=== PATIENT | female | born 1965 | race Caucasian/White ===

== ENCOUNTER → 2018-04-29 15:02 | Outpatient (CLI) | payer MEDICARE, MEDICAID, SELFPAY ==
--- NOTE | 2018-04-29 | DI.MRI.S_ITS ---
PROCEDURE: MR CERVICAL SPINE WO CON INDICATIONS: NECK PAIN AND RIGHT ARM WEAKNESS TECHNIQUE: Noncontrast sagittal T1 spin echo and T2 fast spin echo, sagittal STIR, foraminal oblique sagittal T2 fast spin echo, and axial gradient echo or T2 fast spin echo through the cervical spine. COMPARISON: [facility], CERVICAL SPINE 2 OR 3 VIEWS, 03/31/2011, 18:35. FINDINGS: Image quality: Excellent. Alignment and Curvature: There is normal bony alignment. Bone Marrow: Marrow demonstrates normal overall signal. Spinal Cord: Visualized spinal cord has normal size and signal. No cerebellar tonsillar herniation. Paraspinous Soft Tissues: No paravertebral masses. Prevertebral soft tissues are normal in thickness. C2-C3: Normal appearance. C3-C4: Normal appearance. C4-C5: Normal appearance. C5-C6: The disc height is well-preserved. Loss of disc signal is seen at this level. A mild degree of generalized disc osteophyte complex is seen. No significant neural foraminal or central canal narrowing are seen. C6-C7: Normal appearance. C7-T1: Normal appearance. IMPRESSION: No significant abnormality is seen. Dictated by: Alfa Jade M.D. on 04/29/2018 at 14:56 Approved by: Alfa Jade M.D. on 04/29/2018 at 15:03
== END ==
PROVIDERS: PCP Internal Medicine; Visit Provider Specialist
DX: M54.2 Cervicalgia (principal); R53.1 Weakness
CPT/HCPCS: 72141

== ENCOUNTER 2018-07-21 23:09 | Emergency (ER) | payer MEDICARE, MEDICAID, SELFPAY ==
[2018-07-21 23:14] VITALS: BP 120/75; PULSE 81; RESP 20; TEMP 37; O2SAT 96
--- NOTE | 2018-07-21 23:18 | DI.RAD.S_ITS ---
PROCEDURE: XR ANKLE LT MIN 3V INDICATIONS: 53 year-old woman with fall and ankle pain. TECHNIQUE: 3 views of the ankle were acquired. COMPARISON: None. FINDINGS: Bones: There is a minimally displaced fracture involving the tip of the lateral malleolus. Ankle mortise is normally aligned. No suspicious bony lesions. Soft tissues: Small tibiotalar joint effusion. Achilles tendon appears normal. Soft tissue swelling over the lateral malleolus. IMPRESSION: Minimally displaced lateral malleolar fracture. Dictated by: Mana Lakhani M.D. on 07/22/2018 at 8:32 Approved by: Mana Lakhani M.D. on 07/22/2018 at 8:34
[2018-07-22 01:44] VITALS: BP 104/89; PULSE 77; RESP 16; O2SAT 99
[2018-07-22 01:45] VITALS: BP 104/89; PULSE 77; RESP 16; O2SAT 99
--- NOTE | 2018-07-22 06:07 | ED_ITS ---
HPI - Extremity Injury (Lower) General Chief Complaint: Extremity Injury, Lower Stated Complaint: left ankle injury/thinks broken tripped Time Seen by Provider: 07/22/18 00:00 Source: patient Mode of arrival: ambulatory Limitations: no limitations History of Present Illness HPI Narrative: 53-year-old female with history of diabetic neuropathy and obesity presents with a chief complaint of left ankle pain after an inversion injury while walking in her yd. She denies any knee or hip pain. She has significant pain with any weight-bearing or ambulation. She denies numbness, tingling or weakness. She denies any head, neck or back pain. She admits to notable swelling on her lateral ankle MD complaint: ankle injury Onset (ago): hour(s) Type of Injury: inversion Place: street/outdoors Severity: severe Relieving factors: nothing Exacerbating factors: movement Context: walking Associated symptoms: snap/pop sensation and swelling Other symptoms: none Related Data Home Medications Medication Instructions Recorded Confirmed Lancet: Device #0 05/02/17 05/13/18 glucagon (human recombinant) 1 mg IM PRN PRN #0 11/12/17 05/13/18 [GlucaGen Diagnostic Kit] ibuprofen PRN #0 11/12/17 05/13/18 lisinopril #0 11/12/17 05/13/18 rosuvastatin #0 11/12/17 05/07/18 Previous Rx's Medication Instructions Recorded valacyclovir 500 mg PO BID #60 05/19/12 oxycodone 15 mg OR PRN PRN #14 tab 09/24/16 fluticasone 1 spray INTRANASAL HS #16 gm 11/20/16 fluconazole [Diflucan] 150 mg PO QDAY #10 tab 02/08/17 Glucose: Home Monitor ea #1 04/26/17 Glucose: Test Strips str QID #180 05/01/17 docusate sodium [Colace] 100 mg PO BID PRN #90 cap 05/01/17 insulin aspart U-100 [Novolog 20 u SQ SEE INSTRUCTIONS #5 box 05/01/17 Flexpen U-100 Insulin] insulin glargine [Lantus Solostar 40 u SQ BID #5 box 05/01/17 U-100 Insulin] eletriptan [Relpax] 40 mg PO Q4HP PRN #12 tab 11/12/17 ketorolac 60 mg IM SEE INSTRUCTIONS PRN #4 11/12/17 syr pregabalin [Lyrica] 200 mg PO BID #60 cap 11/12/17 propranolol 120 mg PO QDAY #30 cap 12/26/17 omeprazole 20 mg tablet,delayed 20 mg PO QDAY #90 04/04/18 release eletriptan 40 mg tablet 40 mg PO .COMPLEX #12 tab 04/15/18 nadolol 40 mg tablet 40 mg PO DAILY #30 tab 04/15/18 pregabalin 200 mg capsule 200 mg PO BID #60 cap 04/15/18 dextroamphetamine-amphetamine 10 10 mg PO QPM #30 MDD 40mg 05/13/18 mg tablet dextroamphetamine-amphetamine ER 30 mg PO QDAY #30 cap MDD 40mg 05/13/18 30 mg 24hr capsule,extend release diazepam 10 mg tablet 10 mg PO BID #60 tab 05/13/18 lorazepam 2 mg tablet 2 mg PO HS #30 tab MDD 2mg 05/13/18 quetiapine 200 mg tablet 200 mg PO HS #30 tab MDD 200mg 05/13/18 fluconazole [Diflucan] 150 mg PO QDAY #3 tab 05/19/18 Allergies Allergy/AdvReac Type Severity Reaction Status Date / Time amoxicillin [AMOXICILLIN] Allergy Severe RASH Verified 05/13/18 15:12 Penicillins [PENICILLINS] Allergy Severe RASH Verified 05/13/18 15:12 Sulfa (Sulfonamide Allergy Severe RASH Verified 05/13/18 15:12 Antibiotics) [SULFA (SULFONAMIDE ANTIBIOTICS)] haloperidol [HALOPERIDOL] AdvReac Intermediate TARDIVE Verified 05/13/18 15:12 DYSKINESIA prochlorperazine AdvReac Intermediate TARDIVE Verified 05/13/18 15:12 [PROCHLORPERAZINE] DYSKINESIA Review of Systems Review of Systems All systems reviewed & are unremarkable except as noted in HPI and below Constitutional Denies chills, Denies fever(s), Denies lethargy and Denies weakness Eyes Denies change in vision, Denies eye discharge, Denies irritation and Denies loss of vision ENT Ears, Nose, Mouth, and Throat: Denies change in voice, Denies neck pain and Denies sore throat Cardiovascular Denies chest pain, Denies irregular heart rhythm, Denies lightheadedness, Denies palpitations, Denies dyspnea, Denies dyspnea on exertion and Denies orthopnea Respiratory Denies cough, Denies dyspnea, Denies dyspnea on exertion and Denies wheezing Gastrointestinal Gastrointestinal: Denies abdominal pain, Denies change in bowel habits, Denies diarrhea, Denies nausea and Denies vomiting Genitourinary Denies hematuria, Denies flank pain, Denies urinary incontinence and Denies urinary urgency Musculoskeletal Reports joint swelling, Reports limited range of motion and Denies neck pain Integumentary/Breasts Denies pruritus, Denies erythema, Denies rash and Denies wounds Neurologic Denies confusion, Denies loss of vision and Denies weakness Psychiatric Denies anxiety, Denies confusion, Denies depression, Denies homicidal ideation and Denies suicidal ideation Endocrine Denies palpitations Hematologic/Lymphatic Denies easy bruising Allergic/Immunologic Denies wheezing [facility] Social History Smoking Status: Former smoker Exam Narrative Exam Narrative: GEN: AOx3 and in mild distress EYES: Pupils are equal, round, and reactive to light and accommodation. Extraoccular muscles are intact bilaterally. There is no subconjunctival hemorrhage or exudate. CHEST: Lungs are clear to auscultation bilaterally and free of wheezes, rales, or rhonchi. Heart rate is regular rhythm, there are no murmurs, clicks, rubs, or gallops. There is no chest wall tenderness. ABD: Abdomen is soft and nontender. There is no guarding or rebound. Bowel sounds are normal in all 4 quadrants. There is no mass or organomegaly. EXT: Decreased range of motion secondary to pain of left ankle. Notable swelling over lateral malleolus. Closed, isolated, neurovascularly intact. SKIN: Warm, pink, and dry. No erythema or rash Initial Vital Signs Initial Vital Signs: Vital Signs Temperature 98.6 F 07/21/18 23:14 Pulse Rate 81 07/21/18 23:14 Respiratory Rate 20 07/21/18 23:14 Blood Pressure 120/75 07/21/18 23:14 Pulse Oximetry 96 07/21/18 23:14 Procedures Orthopedic Splinting/Casting Injury #1: Side: left Lower Extremity Injury Location: ankle Lower Extremity Immobilizer: boot orthosis Course Orders Ordered: ED Orders 07/21/18 23:18 XR ankle LT min 3V Stat Vital Signs - 8 hr 09/03/18 23:14 07/22/18 01:44 07/22/18 01:45 Temperature 98.6 F Pulse Rate 81 77 77 Respiratory Rate 20 16 16 Blood Pressure 120/75 104/89 Blood Pressure [Right Arm] 104/89 Pulse Oximetry 96 99 99 MDM - Extremity Injury (Lower) Differential Diagnosis Likely ankle sprain and strain, acute internal derangement of knee, fracture of femur, fracture of hip and ankle fracture Imaging Data Ankle Xray: Attestation: I personally reviewed and interpreted this imaging study as follows: My impression: Left distal fibular fracture, very minimal old displacement if any. Suspect the possibility of ankle mortise disruption on oblique Discharge Plan Departure Patient Disposition: Home Clinical Impression: Closed fracture of left distal fibula Discharge Date/Time: 07/22/18 01:45 Interventions: ED Discharge Assessment Last Done: 07/22/18 01:45 Instructions: Fibula Shaft Fracture Activity Restrictions/Additional Instructions: *You have been diagnosed with [ left distal fibula fracture with suspected ligamentous injury and mild mortise disruption ] *What to do: * continue to take medications as directed NO WEIGHT BEARING until cleared by ortho *Follow up with Orthopedics in 2-3 days, call for an appointment. Let them know you were seen in the Emergency Department and that we ask that you be seen in follow up *Return to ER if you should have any new, worsening or concerning symptoms , such as [ increasing pain, numbness, tingling, weakness or other bothersome symptoms] Prescriptions: No Action dextroamphetamine-amphetamine [Adderall XR] 30 mg capsule,extended release 24hr 30 mg PO QDAY MDD 40mg Qty: 30 RF: 0 dextroamphetamine-amphetamine [Adderall] 10 mg tablet 10 mg PO QPM MDD 40mg Qty: 30 RF: 0 diazepam 10 mg tablet 10 mg PO BID Qty: 60 RF: 1 quetiapine [Seroquel] 200 mg tablet 200 mg PO HS MDD 200mg Qty: 30 RF: 2 lorazepam 2 mg tablet 2 mg PO HS MDD 2mg Qty: 30 RF: 2 valacyclovir 500 MG tablet 500 mg PO BID Qty: 60 RF: 11 oxycodone 15 MG tablet 15 mg OR PRN PRNQty: 14 RF: 0 fluticasone 16 GM spray,suspension 1 spray Intranasal HS Qty: 16 RF: 0 fluconazole [Diflucan] 150 MG tablet 150 mg PO QDAY Qty: 10 RF: 1 Glucose: Home Monitor Qty: 1 RF: 0 docusate sodium [Colace] 100 MG capsule 100 mg PO BID PRNQty: 90 RF: 3 insulin aspart U-100 [Novolog Flexpen U-100 Insulin] 100 UNIT/1 ML insulin pen 20 u SQ SEE INSTRUCTIONS Qty: 5 RF: 5 insulin glargine [Lantus Solostar U-100 Insulin] 100 UNIT/1 ML insulin pen 40 u SQ BID Qty: 5 RF: 5 Glucose: Test Strips QID Qty: 180 RF: 5 Lancet: Device Qty: 0 RF: 0 ibuprofen 800 MG tablet PRNQty: 0 RF: 0 lisinopril 2.5 MG tablet Qty: 0 RF: 0 glucagon (human recombinant) [GlucaGen Diagnostic Kit] 1 MG/1 ML recon soln 1 mg IM PRN PRNQty: 0 RF: 0 rosuvastatin 20 MG tablet Qty: 0 RF: 0 eletriptan [Relpax] 40 MG tablet 40 mg PO Q4HP PRNQty: 12 RF: 11 ketorolac 60 MG/2 ML syringe 60 mg IM SEE INSTRUCTIONS PRNQty: 4 RF: 11 pregabalin [Lyrica] 200 MG capsule 200 mg PO BID Qty: 60 RF: 5 propranolol 120 MG capsule,extended release 24 hr 120 mg PO QDAY Qty: 30 RF: 5 omeprazole 20 mg tablet,delayed release (DR/EC) 20 mg PO QDAY Qty: 90 RF: 3 fluconazole [Diflucan] 150 mg tablet 150 mg PO QDAY Qty: 3 RF: 0 nadolol 40 mg tablet 40 mg PO DAILY Qty: 30 RF: 11 eletriptan [Relpax] 40 mg tablet 40 mg PO .COMPLEX Qty: 12 RF: 11 pregabalin [Lyrica] 200 mg capsule 200 mg PO BID Qty: 60 RF: 5 Referrals: Josr Stanton MD [Primary Care Provider] - Crow Oliva MD [Physician] -
== END 2018-07-22 01:45 | disposition home or self-care (01) ==
PROVIDERS: Emergency Provider Emergency Medicine; PCP Internal Medicine
DX: S82.832A Other fracture of upper and lower end of left fibula, initial encounter for closed fracture (principal); W18.40XA Slipping, tripping and stumbling without falling, unspecified, initial encounter; Y93.01 Activity, walking, marching and hiking; Y92.007 Garden or yard of unspecified non-institutional (private) residence as the place of occurrence of the external cause
CPT/HCPCS: 73610; 99283

== ENCOUNTER 2018-12-14 17:31 | Emergency (ER) | payer MEDICARE, MEDICAID, SELFPAY ==
--- NOTE | 2018-12-14 17:35 | DI.RAD.S_ITS ---
PROCEDURE: XR HAND LT MIN 3V INDICATIONS: slammed hand in door TECHNIQUE: 3 views of the hand(s) acquired. COMPARISON: , CR, XR WRIST LT 2V, 12/14/2018, 17:55. FINDINGS: Bones: There is a chip fracture at the base of the second proximal phalanx with mild displacement. Carpal bones are normally aligned. No suspicious bony lesions. Soft tissues: No suspicious soft tissue calcifications. IMPRESSION: A chip fracture at the base of the second proximal phalanx. Dictated by: Mana Lakhani M.D. on 12/14/2018 at 18:23 Approved by: Mana Lakhani M.D. on 12/14/2018 at 18:25
--- NOTE | 2018-12-14 17:51 | DI.RAD.S_ITS ---
PROCEDURE: XR WRIST LT 2V INDICATIONS: pain after jamming hand into car door TECHNIQUE: 2 views of the wrist were acquired. COMPARISON: [facility], CR, XR HAND LT MIN 3V, 12/14/2018, 17:39. FINDINGS: Bones: There is a chip fracture at the base of the second proximal phalanx with mild displacement. No suspicious bony lesions. Soft tissues: No suspicious soft tissue calcifications. IMPRESSION: Chip fracture at the base of the second proximal phalanx. Dictated by: Mana Lakhani M.D. on 12/14/2018 at 18:25 Approved by: Mana Lakhani M.D. on 12/14/2018 at 18:27
--- NOTE | 2018-12-14 18:12 | ED.UPPEXIN ---
HPI - Extremity Injury (Upper) <Abida Kay, OUTREACH COUNSELOR-BC - Last Filed: 12/14/18 19:36> General Chief Complaint: Extremity Injury, Upper Stated Complaint: Slammed hand into door of car Time Seen by Provider: 12/14/18 17:42 Source: patient Mode of arrival: ambulatory Limitations: no limitations History of Present Illness HPI narrative: Patient presents with chief complaint of left hand and wrist pain since . She is a former smoker with a history of diabetes. She states that she was walking her dog, who pulled her left hand forward and jammed her left 2nd digit in to her car door. She denies any numbness or tingling. She complains of bruising. She states she has not hurt this hand before. She is right-hand dominant. She denies any forearm shoulder or elbow pain. She saw her primary care provider after the injury, but did not discuss her pain as it was not hurting at that point time. Related Data Home Medications Medication Instructions Recorded Confirmed Lancet: Device #0 05/02/17 05/13/18 glucagon (human recombinant) 1 mg IM PRN PRN #0 11/12/17 05/13/18 [GlucaGen Diagnostic Kit] ibuprofen PRN #0 11/12/17 05/13/18 lisinopril #0 11/12/17 05/13/18 rosuvastatin #0 11/12/17 05/07/18 Previous Rx's Medication Instructions Recorded valacyclovir 500 mg PO BID #60 05/19/12 oxycodone 15 mg OR PRN PRN #14 tab 09/24/16 fluticasone 1 spray INTRANASAL HS #16 gm 11/20/16 fluconazole [Diflucan] 150 mg PO QDAY #10 tab 02/08/17 Glucose: Home Monitor ea #1 04/26/17 Glucose: Test Strips str QID #180 05/01/17 docusate sodium [Colace] 100 mg PO BID PRN #90 cap 05/01/17 insulin aspart U-100 [Novolog 20 u SQ SEE INSTRUCTIONS #5 box 05/01/17 Flexpen U-100 Insulin] insulin glargine [Lantus Solostar 40 u SQ BID #5 box 05/01/17 U-100 Insulin] eletriptan [Relpax] 40 mg PO Q4HP PRN #12 tab 11/12/17 ketorolac 60 mg IM SEE INSTRUCTIONS PRN #4 11/12/17 syr pregabalin [Lyrica] 200 mg PO BID #60 cap 11/12/17 propranolol 120 mg PO QDAY #30 cap 12/26/17 omeprazole 20 mg tablet,delayed 20 mg PO QDAY #90 04/04/18 release eletriptan 40 mg tablet 40 mg PO .COMPLEX #12 tab 04/15/18 nadolol 40 mg tablet 40 mg PO DAILY #30 tab 04/15/18 pregabalin 200 mg capsule 200 mg PO BID #60 cap 04/15/18 fluconazole [Diflucan] 150 mg PO QDAY #3 tab 05/19/18 dextroamphetamine-amphetamine 10 10 mg PO QPM #30 MDD 40mg 10/28/18 mg tablet dextroamphetamine-amphetamine ER 30 mg PO QDAY #30 cap MDD 40mg 10/28/18 30 mg 24hr capsule,extend release quetiapine 200 mg tablet 200 mg PO HS #30 tab MDD 200mg 10/28/18 diazepam 10 mg tablet 10 mg PO BID #90 tab 11/27/18 lorazepam 2 mg tablet 2 mg PO HS #45 tab MDD 2mg 11/27/18 Allergies Allergy/AdvReac Type Severity Reaction Status Date / Time amoxicillin [AMOXICILLIN] Allergy Severe RASH Verified 05/13/18 15:12 Penicillins [PENICILLINS] Allergy Severe RASH Verified 05/13/18 15:12 Sulfa (Sulfonamide Allergy Severe RASH Verified 05/13/18 15:12 Antibiotics) [SULFA (SULFONAMIDE ANTIBIOTICS)] haloperidol [HALOPERIDOL] AdvReac Intermediate TARDIVE Verified 05/13/18 15:12 DYSKINESIA prochlorperazine AdvReac Intermediate TARDIVE Verified 05/13/18 15:12 [PROCHLORPERAZINE] DYSKINESIA Review of Systems <Abida Kay, JUANITA-BC - Last Filed: 12/14/18 19:36> Review of Systems GENERAL: Denies chills, fatigue, malaise, fever, sweats. HEENT: Denies sinus pain, ear pain, sore throat, difficulty swallowing, dizziness. RESPIRATORY: Denies dyspnea, cough, wheezing, hemoptysis, sputum. CARDIOVASCULAR: Denies chest pain, palpitations, orthopnea, edema, GASTROINTESTINAL: Denies nausea, vomiting, abdominal pain, diarrhea, constipation, melena. : Denies dysuria, frequency, incontinence, hematuria, urinary retention. MUSCULOSKELETAL: See HPI SKIN: See HPI NEUROLOGIC: Denies weakness, headache, numbness, change in speech, confusion, seizures, incoordination. PSYCHIATRIC: No concerning psychosocial issues. 12 point review of systems is negative except for those stated above Exam <JUANITA Rodríguez-BC - Last Filed: 12/14/18 19:36> Narrative Exam Narrative: GENERAL: Obese patient sitting in no acute distress HEAD: Atraumatic. Normocephalic. No temporal or scalp tenderness. EYES: Pupils equal round and reactive. Extraocular motions intact. No scleral icterus. No injection or drainage. ENT: Nose without bleeding, purulent drainage or septal hematoma. Throat without erythema, tonsillar hypertrophy or exudate. Uvula midline. Airway patent. NECK: Trachea midline. No JVD or lymphadenopathy. Supple, nontender, no meningeal signs. CARDIOVASCULAR: Regular rate and rhythm RESPIRATORY: No cough. No increased respiratory effort. EXTREMITIES: Pain to palpation left 2nd digit. Capillary refill less than 2 sec left 2nd digit. Ecchymosis noted palmar aspect of left hand radiating from left 2nd digit to home. Pain to palpation of hand generalized. Full range of motion noted left wrist. Pain on palpation of left wrist. Patient complains on palpation of left 2nd digit. decreased flexion left second digit. BACK: Nontender without deformity or crepitance. No flank tenderness. NEURO: AOx3. Hyperverbal. SKIN: Ecchymosis noted left hand radiating from 2nd digit down to Center of palm. Skin intact. Initial Vital Signs Initial Vital Signs: Vital Signs Temperature 98.3 F 12/14/18 18:37 Pulse Rate 71 12/14/18 18:37 Respiratory Rate 20 12/14/18 18:37 Blood Pressure 118/78 12/14/18 18:37 Pulse Oximetry 100 12/14/18 18:37 <Epifanio Lopez MD - Last Filed: 12/15/18 00:45> Initial Vital Signs Initial Vital Signs: Vital Signs Temperature 98.3 F 12/14/18 18:37 Pulse Rate 71 12/14/18 18:37 Respiratory Rate 20 12/14/18 18:37 Blood Pressure 118/78 12/14/18 18:37 Pulse Oximetry 100 12/14/18 18:37 Course <MUKESH Rodríguez - Last Filed: 12/14/18 19:36> Orders Ordered: ED Orders 12/14/18 17:35 XR hand LT min 3V Stat 12/14/18 17:51 XR wrist LT 2V Stat Vital Signs - 8 hr 12/14/18 18:37 Temperature 98.3 F Pulse Rate 71 Respiratory Rate 20 Blood Pressure [Right Arm] 118/78 Pulse Oximetry 100 <Epifanio Lopez MD - Last Filed: 12/15/18 00:45> Orders Ordered: ED Orders 12/14/18 17:35 XR hand LT min 3V Stat 12/14/18 17:51 XR wrist LT 2V Stat Vital Signs - 8 hr 12/14/18 18:37 Temperature 98.3 F Pulse Rate 71 Respiratory Rate 20 Blood Pressure [Right Arm] 118/78 Pulse Oximetry 100 MDM - Extremity Injury (Upper) <MUKESH Rodríguez - Last Filed: 12/14/18 19:36> Imaging Data left wrist xray: Radiologist's impression: [address] [address] XRay Report Signed Patient: Anali Don MMR#: [id number] : 1965Acct:[id number] Age/Sex: 53 / FDate of Service: 12/14/18 Loc: ED Accession Number: [id number] Procedure: XR wrist LT 2V Ordering Provider: Abida Kay PROCEDURE: XR WRIST LT 2V INDICATIONS: pain after jamming hand into car door TECHNIQUE: 2 views of the wrist were acquired. COMPARISON: [facility], , XR HAND LT MIN 3V, 12/14/2018, 17:39. FINDINGS: Bones: There is a chip fracture at the base of the second proximal phalanx with mild displacement. No suspicious bony lesions. Soft tissues: No suspicious soft tissue calcifications. IMPRESSION: Chip fracture at the base of the second proximal phalanx. Dictated by: Mana Lakhani M.D. on 12/14/2018 at 18:25 Approved by: Mana Lakhani M.D. on 12/14/2018 at 18:27 hand xray : Radiologist's impression: [address] [address] XRay Report Signed Patient: Anali Don MMR#: [id number] : 1965Acct:[id number] Age/Sex: 53 / FDate of Service: 12/14/18 Loc: ED Accession Number: [id number] Procedure: XR hand LT min 3V Ordering Provider: Abida Kay PROCEDURE: XR HAND LT MIN 3V INDICATIONS: slammed hand in door TECHNIQUE: 3 views of the hand(s) acquired. COMPARISON: [facility], CR, XR WRIST LT 2V, 12/14/2018, 17:55. FINDINGS: Bones: There is a chip fracture at the base of the second proximal phalanx with mild displacement. Carpal bones are normally aligned. No suspicious bony lesions. Soft tissues: No suspicious soft tissue calcifications. IMPRESSION: A chip fracture at the base of the second proximal phalanx. Dictated by: Mana Lakhani M.D. on 12/14/2018 at 18:23 Approved by: Mana Lakhani M.D. on 12/14/2018 at 18:25 [facility] Narrative Medical decision making narrative: Patient presents with chief complaint of left hand and wrist pain after jamming her hand into a car door. On x-ray she is noted to have a chip fracture at the base of her 2nd digit. She was placed in a splint. She was neurovascularly intact. I discussed at length using [id number] pain medication as needed as well as last ice compression elevation. I encouraged her to follow up with primary care provider. I discussed monitoring for circulation in coming back to the emergency department for any acute concerns. She had no questions or concerns upon discharge. Discharge Plan Departure Patient Disposition: Home Clinical Impression: Finger fracture, left Discharge Date/Time: 12/14/18 19:14 Interventions: ED Discharge Assessment Last Done: 12/14/18 19:13 Instructions: DI for Finger Fracture, How To Perform RICE (Rest, Ice, Compress, Elevate) Activity Restrictions/Additional Instructions: You have a small chip fracture in the finger on your left hand. Please use rest ice compression elevation. Please take [id number] pain medications as needed and able. Please follow-up with primary care provider. Please come back to the emergency department for any acute concerns including chest pain, shortness of breath, severe pain. Please rest her hand. Prescriptions: No Action valacyclovir 500 MG tablet 500 mg PO BID Qty: 60 RF: 11 oxycodone 15 MG tablet 15 mg OR PRN PRNQty: 14 RF: 0 fluticasone 16 GM spray,suspension 1 spray Intranasal HS Qty: 16 RF: 0 fluconazole [Diflucan] 150 MG tablet 150 mg PO QDAY Qty: 10 RF: 1 Glucose: Home Monitor Qty: 1 RF: 0 docusate sodium [Colace] 100 MG capsule 100 mg PO BID PRNQty: 90 RF: 3 insulin aspart U-100 [Novolog Flexpen U-100 Insulin] 100 UNIT/1 ML insulin pen 20 u SQ SEE INSTRUCTIONS Qty: 5 RF: 5 insulin glargine [Lantus Solostar U-100 Insulin] 100 UNIT/1 ML insulin pen 40 u SQ BID Qty: 5 RF: 5 Glucose: Test Strips QID Qty: 180 RF: 5 Lancet: Device Qty: 0 RF: 0 ibuprofen 800 MG tablet PRNQty: 0 RF: 0 lisinopril 2.5 MG tablet Qty: 0 RF: 0 glucagon (human recombinant) [GlucaGen Diagnostic Kit] 1 MG/1 ML recon soln 1 mg IM PRN PRNQty: 0 RF: 0 rosuvastatin 20 MG tablet Qty: 0 RF: 0 eletriptan [Relpax] 40 MG tablet 40 mg PO Q4HP PRNQty: 12 RF: 11 ketorolac 60 MG/2 ML syringe 60 mg IM SEE INSTRUCTIONS PRNQty: 4 RF: 11 pregabalin [Lyrica] 200 MG capsule 200 mg PO BID Qty: 60 RF: 5 propranolol 120 MG capsule,extended release 24 hr 120 mg PO QDAY Qty: 30 RF: 5 omeprazole 20 mg tablet,delayed release (DR/EC) 20 mg PO QDAY Qty: 90 RF: 3 fluconazole [Diflucan] 150 mg tablet 150 mg PO QDAY Qty: 3 RF: 0 dextroamphetamine-amphetamine [Adderall] 10 mg tablet 10 mg PO QPM MDD 40mg Qty: 30 RF: 0 dextroamphetamine-amphetamine [Adderall XR] 30 mg capsule,extended release 24hr 30 mg PO QDAY MDD 40mg Qty: 30 RF: 0 quetiapine [Seroquel] 200 mg tablet 200 mg PO HS MDD 200mg Qty: 30 RF: 2 lorazepam 2 mg tablet 2 mg PO HS MDD 2mg Qty: 45 RF: 0 diazepam 10 mg tablet 10 mg PO BID Qty: 90 RF: 0 nadolol 40 mg tablet 40 mg PO DAILY Qty: 30 RF: 11 eletriptan [Relpax] 40 mg tablet 40 mg PO .COMPLEX Qty: 12 RF: 11 pregabalin [Lyrica] 200 mg capsule 200 mg PO BID Qty: 60 RF: 5 Referrals: Josr Stanton MD [Primary Care Provider] - <Epifanio Lopez MD - Last Filed: 12/15/18 00:45> Cosign ED Attending Sonyature Attestation: I was in the ER at the time of this patient's treatment. I was available for verbal assistant kitchen manager or direct patient evaluation if needed. I agree with the evaluation and treatment plan.
--- NOTE | 2018-12-14 18:12 | PC.NURSE ---
cleaned wound with hibiclens then washed off and dried off, steri stripped 1cm flap on thumb knuckle palced 2x2 guaze over then wrapped in conforming guaze with thumb splint. sending pt home with left over supplies.
[2018-12-14 18:37] VITALS: BP 118/78; PULSE 71; RESP 20; TEMP 36.8; O2SAT 100
--- NOTE | 2018-12-14 19:36 | ED_ITS ---
HPI - Extremity Injury (Upper) <Abida Kay, HEAVY EQUIPMENT MECHANIC-BC - Last Filed: 12/14/18 19:36> General Chief Complaint: Extremity Injury, Upper Stated Complaint: Slammed hand into door of car Time Seen by Provider: 12/14/18 17:42 Source: patient Mode of arrival: ambulatory Limitations: no limitations History of Present Illness HPI narrative: Patient presents with chief complaint of left hand and wrist pain since . She is a former smoker with a history of diabetes. She states that she was walking her dog, who pulled her left hand forward and jammed her left 2nd digit in to her car door. She denies any numbness or tingling. She complains of bruising. She states she has not hurt this hand before. She is right-hand dominant. She denies any forearm shoulder or elbow pain. She saw her primary care provider after the injury, but did not discuss her pain as it was not hurting at that point time. Related Data Home Medications Medication Instructions Recorded Confirmed Lancet: Device #0 05/02/17 05/13/18 glucagon (human recombinant) 1 mg IM PRN PRN #0 11/12/17 05/13/18 [GlucaGen Diagnostic Kit] ibuprofen PRN #0 11/12/17 05/13/18 lisinopril #0 11/12/17 05/13/18 rosuvastatin #0 11/12/17 05/07/18 Previous Rx's Medication Instructions Recorded valacyclovir 500 mg PO BID #60 05/19/12 oxycodone 15 mg OR PRN PRN #14 tab 09/24/16 fluticasone 1 spray INTRANASAL HS #16 gm 11/20/16 fluconazole [Diflucan] 150 mg PO QDAY #10 tab 02/08/17 Glucose: Home Monitor ea #1 04/26/17 Glucose: Test Strips str QID #180 05/01/17 docusate sodium [Colace] 100 mg PO BID PRN #90 cap 05/01/17 insulin aspart U-100 [Novolog 20 u SQ SEE INSTRUCTIONS #5 box 05/01/17 Flexpen U-100 Insulin] insulin glargine [Lantus Solostar 40 u SQ BID #5 box 05/01/17 U-100 Insulin] eletriptan [Relpax] 40 mg PO Q4HP PRN #12 tab 11/12/17 ketorolac 60 mg IM SEE INSTRUCTIONS PRN #4 11/12/17 syr pregabalin [Lyrica] 200 mg PO BID #60 cap 11/12/17 propranolol 120 mg PO QDAY #30 cap 12/26/17 omeprazole 20 mg tablet,delayed 20 mg PO QDAY #90 04/04/18 release eletriptan 40 mg tablet 40 mg PO .COMPLEX #12 tab 04/15/18 nadolol 40 mg tablet 40 mg PO DAILY #30 tab 04/15/18 pregabalin 200 mg capsule 200 mg PO BID #60 cap 04/15/18 fluconazole [Diflucan] 150 mg PO QDAY #3 tab 05/19/18 dextroamphetamine-amphetamine 10 10 mg PO QPM #30 MDD 40mg 10/28/18 mg tablet dextroamphetamine-amphetamine ER 30 mg PO QDAY #30 cap MDD 40mg 10/28/18 30 mg 24hr capsule,extend release quetiapine 200 mg tablet 200 mg PO HS #30 tab MDD 200mg 10/28/18 diazepam 10 mg tablet 10 mg PO BID #90 tab 11/27/18 lorazepam 2 mg tablet 2 mg PO HS #45 tab MDD 2mg 11/27/18 Allergies Allergy/AdvReac Type Severity Reaction Status Date / Time amoxicillin [AMOXICILLIN] Allergy Severe RASH Verified 05/13/18 15:12 Penicillins [PENICILLINS] Allergy Severe RASH Verified 05/13/18 15:12 Sulfa (Sulfonamide Allergy Severe RASH Verified 05/13/18 15:12 Antibiotics) [SULFA (SULFONAMIDE ANTIBIOTICS)] haloperidol [HALOPERIDOL] AdvReac Intermediate TARDIVE Verified 05/13/18 15:12 DYSKINESIA prochlorperazine AdvReac Intermediate TARDIVE Verified 05/13/18 15:12 [PROCHLORPERAZINE] DYSKINESIA Review of Systems <Abida Kay, JUANITA-BC - Last Filed: 12/14/18 19:36> Review of Systems GENERAL: Denies chills, fatigue, malaise, fever, sweats. HEENT: Denies sinus pain, ear pain, sore throat, difficulty swallowing, dizziness. RESPIRATORY: Denies dyspnea, cough, wheezing, hemoptysis, sputum. CARDIOVASCULAR: Denies chest pain, palpitations, orthopnea, edema, GASTROINTESTINAL: Denies nausea, vomiting, abdominal pain, diarrhea, constipation, melena. : Denies dysuria, frequency, incontinence, hematuria, urinary retention. MUSCULOSKELETAL: See HPI SKIN: See HPI NEUROLOGIC: Denies weakness, headache, numbness, change in speech, confusion, seizures, incoordination. PSYCHIATRIC: No concerning psychosocial issues. 12 point review of systems is negative except for those stated above Exam <JUANITA Rodríguez-BC - Last Filed: 12/14/18 19:36> Narrative Exam Narrative: GENERAL: Obese patient sitting in no acute distress HEAD: Atraumatic. Normocephalic. No temporal or scalp tenderness. EYES: Pupils equal round and reactive. Extraocular motions intact. No scleral icterus. No injection or drainage. ENT: Nose without bleeding, purulent drainage or septal hematoma. Throat without erythema, tonsillar hypertrophy or exudate. Uvula midline. Airway patent. NECK: Trachea midline. No JVD or lymphadenopathy. Supple, nontender, no meningeal signs. CARDIOVASCULAR: Regular rate and rhythm RESPIRATORY: No cough. No increased respiratory effort. EXTREMITIES: Pain to palpation left 2nd digit. Capillary refill less than 2 sec left 2nd digit. Ecchymosis noted palmar aspect of left hand radiating from left 2nd digit to home. Pain to palpation of hand generalized. Full range of motion noted left wrist. Pain on palpation of left wrist. Patient complains on palpation of left 2nd digit. decreased flexion left second digit. BACK: Nontender without deformity or crepitance. No flank tenderness. NEURO: AOx3. Hyperverbal. SKIN: Ecchymosis noted left hand radiating from 2nd digit down to Center of palm. Skin intact. Initial Vital Signs Initial Vital Signs: Vital Signs Temperature 98.3 F 12/14/18 18:37 Pulse Rate 71 12/14/18 18:37 Respiratory Rate 20 12/14/18 18:37 Blood Pressure 118/78 12/14/18 18:37 Pulse Oximetry 100 12/14/18 18:37 <Epifanio Lopez MD - Last Filed: 12/15/18 00:45> Initial Vital Signs Initial Vital Signs: Vital Signs Temperature 98.3 F 12/14/18 18:37 Pulse Rate 71 12/14/18 18:37 Respiratory Rate 20 12/14/18 18:37 Blood Pressure 118/78 12/14/18 18:37 Pulse Oximetry 100 12/14/18 18:37 Course <MUKESH Rodríguez - Last Filed: 12/14/18 19:36> Orders Ordered: ED Orders 12/14/18 17:35 XR hand LT min 3V Stat 12/14/18 17:51 XR wrist LT 2V Stat Vital Signs - 8 hr 12/14/18 18:37 Temperature 98.3 F Pulse Rate 71 Respiratory Rate 20 Blood Pressure [Right Arm] 118/78 Pulse Oximetry 100 <Epifanio Lopez MD - Last Filed: 12/15/18 00:45> Orders Ordered: ED Orders 12/14/18 17:35 XR hand LT min 3V Stat 12/14/18 17:51 XR wrist LT 2V Stat Vital Signs - 8 hr 12/14/18 18:37 Temperature 98.3 F Pulse Rate 71 Respiratory Rate 20 Blood Pressure [Right Arm] 118/78 Pulse Oximetry 100 MDM - Extremity Injury (Upper) <MUKESH Rodríguez - Last Filed: 12/14/18 19:36> Imaging Data left wrist xray: Radiologist's impression: [address] [address] XRay Report Signed Patient: Anali Don MMR#: [id number] : 1965Acct:[id number] Age/Sex: 53 / FDate of Service: 12/14/18 Loc: ED Accession Number: [id number] Procedure: XR wrist LT 2V Ordering Provider: Abida Kay PROCEDURE: XR WRIST LT 2V INDICATIONS: pain after jamming hand into car door TECHNIQUE: 2 views of the wrist were acquired. COMPARISON: [facility], , XR HAND LT MIN 3V, 12/14/2018, 17:39. FINDINGS: Bones: There is a chip fracture at the base of the second proximal phalanx with mild displacement. No suspicious bony lesions. Soft tissues: No suspicious soft tissue calcifications. IMPRESSION: Chip fracture at the base of the second proximal phalanx. Dictated by: Mana Lakhani M.D. on 12/14/2018 at 18:25 Approved by: Mana Lakhani M.D. on 12/14/2018 at 18:27 hand xray : Radiologist's impression: [address] [address] XRay Report Signed Patient: Anali Don MMR#: [id number] : 1965Acct:[id number] Age/Sex: 53 / FDate of Service: 12/14/18 Loc: ED Accession Number: [id number] Procedure: XR hand LT min 3V Ordering Provider: Abida Kay PROCEDURE: XR HAND LT MIN 3V INDICATIONS: slammed hand in door TECHNIQUE: 3 views of the hand(s) acquired. COMPARISON: [facility], CR, XR WRIST LT 2V, 12/14/2018, 17:55. FINDINGS: Bones: There is a chip fracture at the base of the second proximal phalanx with mild displacement. Carpal bones are normally aligned. No suspicious bony lesions. Soft tissues: No suspicious soft tissue calcifications. IMPRESSION: A chip fracture at the base of the second proximal phalanx. Dictated by: Mana Lakhani M.D. on 12/14/2018 at 18:23 Approved by: Mana Lakhani M.D. on 12/14/2018 at 18:[address] [facility] Narrative Medical decision making narrative: Patient presents with chief complaint of left hand and wrist pain after jamming her hand into a car door. On x-ray she is noted to have a chip fracture at the base of her 2nd digit. She was placed in a splint. She was neurovascularly intact. I discussed at length using over- the-counter pain medication as needed as well as last ice compression elevation. I encouraged her to follow up with primary care provider. I discussed monitoring for circulation in coming back to the emergency department for any acute concerns. She had no questions or concerns upon discharge. Discharge Plan Departure Patient Disposition: Home Clinical Impression: Finger fracture, left Discharge Date/Time: 12/14/18 19:14 Interventions: ED Discharge Assessment Last Done: 12/14/18 19:13 Instructions: DI for Finger Fracture, How To Perform RICE (Rest, Ice, Compress , Elevate) Activity Restrictions/Additional Instructions: You have a small chip fracture in the finger on your left hand. Please use rest ice compression elevation. Please take [id number] pain medications as needed and able. Please follow-up with primary care provider. Please come back to the emergency department for any acute concerns including chest pain, shortness of breath, severe pain. Please rest her hand. Prescriptions: No Action valacyclovir 500 MG tablet 500 mg PO BID Qty: 60 RF: 11 oxycodone 15 MG tablet 15 mg OR PRN PRNQty: 14 RF: 0 fluticasone 16 GM spray,suspension 1 spray Intranasal HS Qty: 16 RF: 0 fluconazole [Diflucan] 150 MG tablet 150 mg PO QDAY Qty: 10 RF: 1 Glucose: Home Monitor Qty: 1 RF: 0 docusate sodium [Colace] 100 MG capsule 100 mg PO BID PRNQty: 90 RF: 3 insulin aspart U-100 [Novolog Flexpen U-100 Insulin] 100 UNIT/1 ML insulin pen 20 u SQ SEE INSTRUCTIONS Qty: 5 RF: 5 insulin glargine [Lantus Solostar U-100 Insulin] 100 UNIT/1 ML insulin pen 40 u SQ BID Qty: 5 RF: 5 Glucose: Test Strips QID Qty: 180 RF: 5 Lancet: Device Qty: 0 RF: 0 ibuprofen 800 MG tablet PRNQty: 0 RF: 0 lisinopril 2.5 MG tablet Qty: 0 RF: 0 glucagon (human recombinant) [GlucaGen Diagnostic Kit] 1 MG/1 ML recon soln 1 mg IM PRN PRNQty: 0 RF: 0 rosuvastatin 20 MG tablet Qty: 0 RF: 0 eletriptan [Relpax] 40 MG tablet 40 mg PO Q4HP PRNQty: 12 RF: 11 ketorolac 60 MG/2 ML syringe 60 mg IM SEE INSTRUCTIONS PRNQty: 4 RF: 11 pregabalin [Lyrica] 200 MG capsule 200 mg PO BID Qty: 60 RF: 5 propranolol 120 MG capsule,extended release 24 hr 120 mg PO QDAY Qty: 30 RF: 5 omeprazole 20 mg tablet,delayed release (DR/EC) 20 mg PO QDAY Qty: 90 RF: 3 fluconazole [Diflucan] 150 mg tablet 150 mg PO QDAY Qty: 3 RF: 0 dextroamphetamine-amphetamine [Adderall] 10 mg tablet 10 mg PO QPM MDD 40mg Qty: 30 RF: 0 dextroamphetamine-amphetamine [Adderall XR] 30 mg capsule,extended release 24hr 30 mg PO QDAY MDD 40mg Qty: 30 RF: 0 quetiapine [Seroquel] 200 mg tablet 200 mg PO HS MDD 200mg Qty: 30 RF: 2 lorazepam 2 mg tablet 2 mg PO HS MDD 2mg Qty: 45 RF: 0 diazepam 10 mg tablet 10 mg PO BID Qty: 90 RF: 0 nadolol 40 mg tablet 40 mg PO DAILY Qty: 30 RF: 11 eletriptan [Relpax] 40 mg tablet 40 mg PO .COMPLEX Qty: 12 RF: 11 pregabalin [Lyrica] 200 mg capsule 200 mg PO BID Qty: 60 RF: 5 Referrals: Josr Stanton MD [Primary Care Provider] - <Epifanio Lopez MD - Last Filed: 12/15/18 00:45> Cosign ED Attending Sonyature Attestation: I was in the ER at the time of this patient's treatment. I was available for verbal medical records assistant or direct patient evaluation if needed. I agree with the evaluation and treatment plan.
== END 2018-12-14 19:14 | disposition home or self-care (01) ==
PROVIDERS: Emergency Provider Nurse Practitioner Family; PCP Internal Medicine
DX: S62.609A Fracture of unspecified phalanx of unspecified finger, initial encounter for closed fracture (principal); W23.0XXA Caught, crushed, jammed, or pinched between moving objects, initial encounter
CPT/HCPCS: 29130; 73100; 73130; 99283

== ENCOUNTER 2019-05-14 17:46 | Emergency (ER) | payer MEDICARE, MEDICAID, SELFPAY ==
[2019-05-14 17:50] VITALS: BP 98/75; PULSE 105; RESP 22; TEMP 37.1; O2SAT 98; BMI 91.7
[2019-05-14 18:25] LABS: Add Manual Diff / Slide Review NO; Basophils Absolute Auto 0 /uL (0-100); Basophils Percent Auto 0.5 % (0-2); Eosinophils Absolute Auto 100 /uL (0-450); Eosinophils Percent Auto 1.6 % (2-4); Hematocrit 41.1 % (36-46); Hemoglobin 13.7 g/dL (12.0-16.0); Lymphocytes Absolute Auto 3100 /uL (1100-4500); Lymphocytes Percent Auto 45.1 % (25-40); Mean Corpuscular HGB Conc 33.3 % (30-36); Mean Corpuscular Hemoglobin 28.9 PG (26-34); Mean Corpuscular Volume 86.8 fL (80-100); Monocytes Absolute Auto 500 /uL (0-900); Monocytes Percent Auto 7.6 % (3-14); Neutrophils Absolute Auto 3100 /uL (1500-7000); Neutrophils Percent Auto 45.2 % (50-75); Platelet Count 173 X10^3/uL (150-400); Red Blood Cell Count 4.73 X10^6/uL (4.0-5.2); Red Cell Distribution Width 13.7 % (11.6-14.8); White Blood Cell Count 6.9 X10^3/uL (4.5-11.0)
[2019-05-14 18:28] VITALS: BP 105/79; PULSE 104; RESP 20; O2SAT 97
[2019-05-14 18:41] LABS: Alanine Aminotransferase 25 IU/L (9-52); Albumin 4.1 g/dL (3.5-5.0); Albumin Globulin Ratio 1.3 (1.0-2.8); Alkaline Phosphatase 135 U/L (38-126); Aspartate Aminotransferase 25 IU/L (14-36); BUN Creatinine Ratio 22.5 (6-22); Bilirubin Total 0.5 mg/dL (0.2-1.3); Blood Urea Nitrogen 18 mg/dL (7-17); Carbon Dioxide 24 mmol/L (22-32); Chloride 103 mmol/L (98-107); Creatine Kinase 91 U/L (30-135); Estimated Glomerular Filt Rate > 60.0 mL/min (>60); Globulin 3.1 g/dL (1.7-4.1); Glucose 359 mg/dL (70-100); HEMOLYSIS < 15 (0-50); Lactate (Lactic Acid) 3.1 mmol/L (0.7-2.1); Potassium 3.7 mmol/L (3.4-5.1); Sodium 139 mmol/L (137-145); Total Protein 7.2 g/dL (6.3-8.2)
[2019-05-14 18:42] LABS: HCO3 VBG 22 mmol/L (23-28); PCO2 VBG 49.8 mmHg (45-50); PO2 VBG 34 mmHg (35-45); Total CO2 VBG 24 mmol/L (24-29); pH VBG 7.26 (7.33-7.43)
[2019-05-14 18:43] LABS: Oxygen Saturation VBG 56 % (70-75)
[2019-05-14 18:45] LABS: Ketones (Beta-Hydroxybutyrate) 0.14 mmol/L (<0.27)
[2019-05-14] MEDS: SODIUM CHLORIDE 0.9% 1,000 ML 1000 ML IV (18:52)
[2019-05-14 18:56] LABS: Procalcitonin < 0.05 ng/mL (<0.5); Troponin I < 0.012 ng/mL (0.01-0.034)
--- NOTE | 2019-05-14 19:55 | ED_ITS ---
HPI - Arrhythmia/Palpitations General Chief Complaint: Arrhythmia/Palpitations Stated Complaint: CHEST PAIN, SHORT OF BREATH Time Seen by Provider: 05/14/19 18:03 Source: patient Mode of arrival: ambulatory Limitations: no limitations History of Present Illness HPI narrative: Patient comes emergency department complaining of palpitations and shortness of breath whenever she bends over or stands up. The symptoms seem to come on and resolved together. Patient states that she does not have the symptoms when she is just sitting still or lying in bed. She states that she feels like she has been getting enough to drink, but her sugars also run quite high at baseline, from 2-400 usually. Patient states that she has not been ill with anything in particular. No vomiting, though she has some chronic nausea. No diarrhea. No dysuria. No fevers or chills. Patient states that she has gained some weight over the last several months, and wonders if this is part of the problem. She denies any chest pain or shortness of breath. Patient states she has not taken her pulse during the times when she feels as though her heart is racing. No change in her diet recently. She does note that her sugars seems to be higher than usual today. The highest sugar she had was 600 this afternoon. Patient states she took her insulin at a little higher dose than usual, and her sugars were starting to come down before she came here. Related Data Home Medications Medication Instructions Recorded Confirmed Lancet: Device #0 05/02/17 04/07/19 glucagon (human recombinant) 1 mg IM PRN PRN #0 11/12/17 04/07/19 [GlucaGen Diagnostic Kit] ibuprofen 800 mg PO BID PRN #0 11/12/17 05/14/19 lisinopril #0 11/12/17 04/07/19 rosuvastatin 20 mg PO DAILY #0 11/12/17 05/14/19 insulin degludec (U-200) 200 32 unit SUBCUT BID #27 ml 01/13/19 04/07/19 unit/mL (3 mL) subcutaneous pen fluconazole [Diflucan] 150 mg PO .ONCE PRN 05/14/19 05/14/19 insulin degludec [Tresiba 05/14/19 FlexTouch U-200] naloxone [Narcan] 1 spray INTRANASAL PRN PRN 05/14/19 05/14/19 omeprazole 20 mg PO DAILY 05/14/19 05/14/19 oxycodone 15 mg OR Q8H PRN 05/14/19 05/14/19 pregabalin [Lyrica] 05/14/19 tizanidine 4 mg PO Q8H PRN 05/14/19 05/14/19 valacyclovir 05/14/19 Previous Rx's Medication Instructions Recorded valacyclovir 500 mg PO BID #60 05/19/12 fluticasone propionate 1 spray INTRANASAL HS #16 gm 11/20/16 Glucose: Home Monitor ea #1 04/26/17 Glucose: Test Strips str QID #180 05/01/17 docusate sodium [Colace] 100 mg PO BID PRN #90 cap 05/01/17 insulin aspart U-100 [Novolog 20 u SQ SEE INSTRUCTIONS #5 box 05/01/17 Flexpen U-100 Insulin] insulin glargine [Lantus Solostar 40 u SQ BID #5 box 05/01/17 U-100 Insulin] eletriptan [Relpax] 40 mg PO Q4HP PRN #12 tab 11/12/17 ketorolac 60 mg IM SEE INSTRUCTIONS PRN #4 11/12/17 syr pregabalin [Lyrica] 200 mg PO BID #60 cap 11/12/17 eletriptan 40 mg tablet 40 mg PO .COMPLEX #12 tab 04/15/18 nadolol 40 mg tablet 40 mg PO DAILY #30 tab 04/15/18 pregabalin 200 mg capsule 200 mg PO BID #60 cap 04/15/18 diazepam 10 mg tablet 10 mg PO BID #60 tab MDD 20 mg 01/13/19 lorazepam 2 mg tablet 3 mg PO HS #45 tab MDD 2mg 01/13/19 quetiapine 200 mg tablet 200 mg PO HS #30 tab MDD 200mg 01/13/19 dextroamphetamine-amphetamine 10 10 mg PO .PM #30 tab MDD 40 mg 04/07/19 mg tablet dextroamphetamine-amphetamine ER 30 mg PO DAILY 30 Days #30 cap MDD 04/07/19 30 mg 24hr capsule,extend release 40 mg Allergies Allergy/AdvReac Type Severity Reaction Status Date / Time amoxicillin [AMOXICILLIN] Allergy Severe RASH Verified 05/13/18 15:12 Penicillins [PENICILLINS] Allergy Severe RASH Verified 05/13/18 15:12 Sulfa (Sulfonamide Allergy Severe RASH Verified 05/13/18 15:12 Antibiotics) [SULFA (SULFONAMIDE ANTIBIOTICS)] haloperidol [HALOPERIDOL] AdvReac Intermediate TARDIVE Verified 05/13/18 15:12 DYSKINESIA prochlorperazine AdvReac Intermediate TARDIVE Verified 05/13/18 15:12 [PROCHLORPERAZINE] DYSKINESIA Review of Systems Constitutional Denies chills, Denies fever(s), Denies lethargy and Denies weakness Eyes Denies change in vision, Denies eye discharge, Denies irritation and Denies loss of vision ENT Ears, Nose, Mouth, and Throat: Denies change in voice, Denies neck pain and Denies sore throat Cardiovascular Denies chest pain, Denies irregular heart rhythm, Denies lightheadedness, Reports palpitations, Reports dyspnea, Denies dyspnea on exertion and Denies orthopnea Respiratory Denies cough, Reports dyspnea, Denies dyspnea on exertion and Denies wheezing Gastrointestinal Gastrointestinal: Denies abdominal pain, Denies change in bowel habits, Denies diarrhea, Denies nausea and Denies vomiting Genitourinary Denies hematuria, Denies flank pain, Denies urinary incontinence and Denies urinary urgency Musculoskeletal Denies neck pain Integumentary/Breasts Denies pruritus, Denies erythema, Denies rash and Denies wounds Neurologic Denies confusion, Denies loss of vision and Denies weakness Psychiatric Denies anxiety, Denies confusion, Denies depression, Denies homicidal ideation and Denies suicidal ideation Endocrine Reports palpitations Hematologic/Lymphatic Denies easy bruising Allergic/Immunologic Denies wheezing [facility] Medical History (Updated 05/14/19 @ 21:58 by Tori Pulido MD) Fractured coccyx (Acute) Chronic pain (Acute) Opiate dependence (Acute) Obesity (Chronic) Diabetes (Acute) Diabetic neuropathy (Acute) Bipolar 2 disorder (Chronic) Attention deficit hyperactivity disorder (ADHD), combined type (Chronic) Left leg pain (Acute) Fracture of right proximal fibula (Acute) Thoracic myofascial strain (Acute) Toe pain (Acute) Post traumatic stress disorder (Chronic) Bilateral low back pain with sciatica (12/08/15) Chronic pain syndrome (Chronic 12/08/15) Diabetic ketoacidosis with coma associated with type 2 diabetes mellitus (12/08/15) History of avascular necrosis of capital femoral epiphysis (12/08/15) Hyperalgesia (12/08/15) Encounter for long-term methadone use for opiate dependence (12/08/15) Anxiety and depression (Ruled-out 01/17/16) Obesity with body mass index (BMI) of 30.0 to 39.9 (01/17/16) Former smoker (03/20/16) Other closed fracture of proximal end of right fibula with routine healing (06/19/16) Social History Smoking Status: Former smoker Social History Smoking Status: Former smoker Exam Initial Vital Signs Initial Vital Signs: Vital Signs Temperature 98.7 F 05/14/19 17:50 Pulse Rate 105 H 05/14/19 17:50 Respiratory Rate 22 05/14/19 17:50 Blood Pressure 98/75 05/14/19 17:50 Pulse Oximetry 98 05/14/19 17:50 Const General: cooperative and well developed Nutritional Appearance: well nourished Orientation: alert, awake, oriented x3 and not confused Other: Patient is very well-appearing. [facility] Head: normocephalic and atraumatic Ears: external ears normal Nose: external nose normal and No nasal discharge Face and sinus: face symmetric and No dry mucous membranes Mouth: oral mucosae normal and moist mucous membranes Teeth and gingiva: dentition normal Eyes General: appearance normal, both eyes and all related structures Eyelids: eyelids normal Conjunctivae: conjunctivae normal Sclera: sclerae normal Pupils: PERRL EOM: EOM intact bilaterally Neck Neck: normal visual inspection, trachea midline, No lymphadenopathy, No midline deformity and No JVD Lymphatic: No lymphedema Chest Chest: normal inspection of the chest Resp Effort & Inspection: normal respiratory effort, able to speak in complete sentences, no respiratory distress and no use of accessory muscles Auscultation: clear to auscultation bilaterally, no rales, no rhonchi and no wheezes Other: Patient talks very quickly without difficulty, and speaks in several sentences at a time without a break. She does not appear to have any difficulty breathing in the midst of this. Cardio Rate: regular rate Rhythm: regular rhythm Heart Sounds: no click, no gallops, no murmurs and no rubs Pulses: normal peripheral pulses Other: Patient's cardiac rhythm is in the upper 90s to low 100s and regular on the monitor while I am in the room. Heart rate does increase to around 110 when patient sits up for the respiratory exam. GI Inspection: non-distended Palpation: soft, no hepatosplenomegaly, No guarding, No pulsatile mass and No tender Auscultation: normal bowel sounds Back/Spine/Pelvis Back: No CVA tenderness Cervical Spine: cervical ROM normal and No pain with cervical ROM Thoracic/Lumbar Spine: thoracic and lumbar spine normal to inspection Skin General: no rashes or lesions noted, No jaundice and No petechiae Neuro General: alert, oriented x3, gait normal and no focal motor deficits Speech: speech normal Extrem General: full ROM, no clubbing, cyanosis or edema, no pedal edema and no calf tenderness Psych Appearance: well kempt Mental Status: mental status grossly normal Attitude: cooperative Thought Content: normal and suicidality Judgment: judgment good Course Course Narrative: Patient was evaluated with laboratory studies, and found to have a blood sugar 359. She was given a L of 0.9 normal saline while in the emergency department. Patient's heart rate remained in the 90s and actually did come down to the low 90s after patient received IV fluids. Her blood pressure remained normal. I have discussed with the patient that she may need to wear a Holter monitor to sort out her palpitations, and that she may arrange this with her primary care physician. I do suspect that the patient is chronically somewhat dehydrated but perhaps with a recent exacerbation, due to her poorly controlled blood sugars and diabetes. We have discussed this. We have also discussed that while the patient may feel as though she is getting ?enough water? she may need to fill a jug or large bottle every morning, and make sure that she drinks at least 64 oz and maybe more if needed. Patient was found to b e feeling much better upon re-evaluation after fluids, and I felt she was stable for discharge home. Lactic acid level had been checked as part of a lab panel and found to be elevated, but did come down to nearly normal with IV fluids. I did not suspect this patient to be septic, as she had no infectious symptoms, and appeared quite well. We have discussed home management symptoms, the need for follow-up, and the usual indications for return. Orders Ordered: Discontinued Medications Sodium Chloride (Normal Saline 0.9%) 1,000 mls @ 1,000 mls/hr IV BOLUS ONE Stop: 05/14/19 19:51 Last Infusion: 05/14/19 19:53 Dose: 1,000 mls/hr Admin: 05/14/19 18:52 Dose: 1,000 mls/hr Vital Signs - 8 hr 05/14/19 17:50 05/14/19 18:28 Temperature 98.7 F Pulse Rate 105 H 104 H Respiratory Rate 22 20 Blood Pressure 98/75 Blood Pressure [Right Arm] 105/79 Pulse Oximetry 98 97 MDM - Arrhythmia/Palpitations Medical Records Attestation: I reviewed the patient's medical records. Lab Data Attestation: I reviewed the patient's lab results. Result diagrams: 05/14/19 18:15 05/14/19 18:15 Lab Results 05/14/19 05/14/19 05/14/19 Range/Units 18:08 18:15 18:15 WBC 6.9 (4.5-11.0) X10^3/uL RBC 4.73 (4.0-5.2) X10^6/uL Hgb 13.7 (12.0-16.0) g/dL Hct 41.1 (36-46) % MCV 86.8 (80-100) fL MCH 28.9 (26-34) PG MCHC 33.3 (30-36) % RDW 13.7 (11.6-14.8) % Plt Count 173 (150-400) X10^3/uL Neut % (Auto) 45.2 L (50-75) % Lymph % (Auto) 45.1 H (25-40) % Meagher % (Auto) 7.6 (3-14) % Eos % (Auto) 1.6 L (2-4) % Baso % (Auto) 0.5 (0-2) % Neut # (Auto) 3100 (7800-8389) /uL Lymph # (Auto) 3100 (8343-3336) /uL Meagher # (Auto) 500 (0-900) /uL Eos # (Auto) 100 (0-450) /uL Baso # (Auto) 0 (0-100) /uL VBG pH 7.26 L (7.33-7.43) VBG pCO2 49.8 (45-50) mmHg VBG pO2 34 L (35-45) mmHg VBG HCO3 22 L (23-28) mmol/L VBG Total CO2 24 (24-29) mmol/L VBG O2 Saturation 56 L (70-75) % VBG Base Excess -5.0 L (0-4) mmol/L Sodium 139 (137-145) mmol/L Potassium 3.7 (3.4-5.1) mmol/L Chloride 103 (98-107) mmol/L Carbon Dioxide 24 (22-32) mmol/L BUN 18 H (7-17) mg/dL Creatinine 0.80 (0.52-1.04) mg/dL Estimated GFR > 60.0 (>60) mL/min BUN/Creatinine Ratio 22.5 H (6-22) Glucose 359 H (70-100) mg/dL Lactate (0.7-2.1) mmol/L Calcium 9.0 (8.4-10.2) mg/dL Total Bilirubin 0.5 (0.2-1.3) mg/dL AST 25 (14-36) IU/L ALT 25 (9-52) IU/L Alkaline Phosphatase 135 H (38-126) U/L Total Creatine Kinase 91 (30-135) U/L CK-MB (CK-2) TNP CK-MB (CK-2) Rel Index TNP Troponin I < 0.012 (0.01-0.034) ng/mL Total Protein 7.2 (6.3-8.2) g/dL Albumin 4.1 (3.5-5.0) g/dL Globulin 3.1 (1.7-4.1) g/dL Albumin/Globulin Ratio 1.3 (1.0-2.8) Procalcitonin (<0.5) ng/mL Ketones 0.14 (<0.27) mmol/L 05/14/19 05/14/19 05/14/19 Range/Units 18:15 18:15 20:20 WBC (4.5-11.0) X10^3/uL RBC (4.0-5.2) X10^6/uL Hgb (12.0-16.0) g/dL Hct (36-46) % MCV (80-100) fL MCH (26-34) PG MCHC (30-36) % RDW (11.6-14.8) % Plt Count (150-400) X10^3/uL Neut % (Auto) (50-75) % Lymph % (Auto) (25-40) % Meagher % (Auto) (3-14) % Eos % (Auto) (2-4) % Baso % (Auto) (0-2) % Neut # (Auto) (4938-7068) /uL Lymph # (Auto) (0241-6905) /uL Meagher # (Auto) (0-900) /uL Eos # (Auto) (0-450) /uL Baso # (Auto) (0-100) /uL VBG pH (7.33-7.43) VBG pCO2 (45-50) mmHg VBG pO2 (35-45) mmHg VBG HCO3 (23-28) mmol/L VBG Total CO2 (24-29) mmol/L VBG O2 Saturation (70-75) % VBG Base Excess (0-4) mmol/L Sodium (137-145) mmol/L Potassium (3.4-5.1) mmol/L Chloride (98-107) mmol/L Carbon Dioxide (22-32) mmol/L BUN (7-17) mg/dL Creatinine (0.52-1.04) mg/dL Estimated GFR (>60) mL/min BUN/Creatinine Ratio (6-22) Glucose (70-100) mg/dL Lactate 3.1 H 2.2 H (0.7-2.1) mmol/L Calcium (8.4-10.2) mg/dL Total Bilirubin (0.2-1.3) mg/dL AST (14-36) IU/L ALT (9-52) IU/L Alkaline Phosphatase (38-126) U/L Total Creatine Kinase (30-135) U/L CK-MB (CK-2) CK-MB (CK-2) Rel Index Troponin I (0.01-0.034) ng/mL Total Protein (6.3-8.2) g/dL Albumin (3.5-5.0) g/dL Globulin (1.7-4.1) g/dL Albumin/Globulin Ratio (1.0-2.8) Procalcitonin < 0.05 (<0.5) ng/mL Ketones (<0.27) mmol/L Point of Care Testing Glucose POC 303 Urine Dip Bedside Urine Glucose 500 mg/dl Bedside Urine Bilirubin - Negative Bedside Urine Ketone - Negative Urine Specific [place] 1.020 Bedside Urine Occult Blood - Negative Bedside Urine pH 6.0 Bedside Urine Protein + 30 Bedside Urine Urobilinogen +/- 1mg Bedside Urine Nitrite - Negative Bedside Urine Leukocytes - Negative Esterase ECG Data Attestation: I personally reviewed and interpreted this ECG as follows: Interpretation: Twelve lead EKG performed May 14, 2019 at 5:57 p.m., as fol lows: Regular ventricular rhythm with a rate of 100 beats per minute MO interval 148 millisecond QRS duration 101 millisecond QTC interval 421 millisecond Sparks normal No significant ST T wave changes Interpretation: Sinus tachycardia; possible anterior MD of indeterminate age; no signs of acute ischemia; abnormal EKG as interpreted by ED MD. Discharge Plan Departure Patient Disposition: Home Clinical Impression: Acute dehydration, Palpitations Discharge Date/Time: 05/14/19 22:00 Interventions: ED Discharge Assessment Last Done: 05/14/19 22:09 Instructions: DI for Dehydration -- Adult, DI for Palpitations Activity Restrictions/Additional Instructions: Your labs look good, and both your heart rate and labs improved with IV fluids. Most likely, with your chronically elevated blood sugars, you have been dehydrated, though this may have gotten a little worse lately. It is very important to be sure you are drinking plenty of fluids. In the mornings, you may fill a jug or bottle with the entire amount of water you need to drink for the day, and then you can be sure of how much you are drinking. Please follow up with your doctor to discuss whether your diabetic medications need to be switched or just did, and also to discuss wearing a Holter monitor if your pa lpitations continue. Prescriptions: No Action Tresiba FlexTouch U-200 200 unit/mL (3 mL) insulin pen 32 unit SUBCUT BID Qty: 27 RF: 0 quetiapine [Seroquel] 200 mg tablet 200 mg PO HS MDD 200mg Qty: 30 RF: 5 lorazepam 2 mg tablet 3 mg PO HS MDD 2mg Qty: 45 RF: 5 diazepam 10 mg tablet 10 mg PO BID MDD 20 mg Qty: 60 RF: 5 dextroamphetamine-amphetamine 30 mg capsule,extended release 24hr 30 mg PO DAILY MDD 40 mg 30 Days Qty: 30 RF: 0 dextroamphetamine-amphetamine 10 mg tablet 10 mg PO .PM MDD 40 mg Qty: 30 RF: 0 valacyclovir 500 MG tablet 500 mg PO BID Qty: 60 RF: 11 fluticasone propionate 16 GM spray,suspension 1 spray Intranasal HS Qty: 16 RF: 0 Glucose: Home Monitor Qty: 1 RF: 0 docusate sodium [Colace] 100 MG capsule 100 mg PO BID PRNQty: 90 RF: 3 insulin aspart U-100 [Novolog Flexpen U-100 Insulin] 100 UNIT/1 ML insulin pen 20 u SQ SEE INSTRUCTIONS Qty: 5 RF: 5 insulin glargine [Lantus Solostar U-100 Insulin] 100 UNIT/1 ML insulin pen 40 u SQ BID Qty: 5 RF: 5 Glucose: Test Strips QID Qty: 180 RF: 5 Lancet: Device Qty: 0 RF: 0 ibuprofen 800 MG tablet 800 mg PO BID PRN (Reason: PAIN) Qty: 0 RF: 0 lisinopril 2.5 MG tablet Qty: 0 RF: 0 glucagon (human recombinant) [GlucaGen Diagnostic Kit] 1 MG/1 ML recon soln 1 mg IM PRN PRNQty: 0 RF: 0 rosuvastatin 20 MG tablet 20 mg PO DAILY Qty: 0 RF: 0 eletriptan [Relpax] 40 MG tablet 40 mg PO Q4HP PRNQty: 12 RF: 11 ketorolac 60 MG/2 ML syringe 60 mg IM SEE INSTRUCTIONS PRNQty: 4 RF: 11 pregabalin [Lyrica] 200 MG capsule 200 mg PO BID Qty: 60 RF: 5 fluconazole [Diflucan] 150 MG tablet 150 mg PO .ONCE PRN (Reason: YEAST INFECTION) RF: 0 tizanidine 4 mg tablet 4 mg PO Q8H PRN (Reason: Spasms) RF: 0 valacyclovir 500 mg tablet RF: 0 Lyrica 75 mg capsule RF: 0 Tresiba FlexTouch U-200 200 unit/mL (3 mL) insulin pen RF: 0 Narcan 4 mg/actuation spray,non-aerosol 1 spray intranasal PRN PRN (Reason: Opiate Reversal) RF: 0 oxycodone 15 MG tablet 15 mg OR Q8H PRN (Reason: PAIN) RF: 0 omeprazole 20 mg tablet,delayed release (DR/EC) 20 mg PO DAILY RF: 0 nadolol 40 mg tablet 40 mg PO DAILY Qty: 30 RF: 11 eletriptan [Relpax] 40 mg tablet 40 mg PO .COMPLEX Qty: 12 RF: 11 pregabalin [Lyrica] 200 mg capsule 200 mg PO BID Qty: 60 RF: 5 Referrals: Josr Stanton MD [Primary Care Provider] -
[2019-05-14 19:58] VITALS: BP 132/75; PULSE 93; RESP 21; O2SAT 96
[2019-05-14 20:22] LABS: Reflexed Lactate in 2 Hours Y
[2019-05-14 20:44] LABS: Lactate (Lactic Acid) 2.2 mmol/L (0.7-2.1)
[2019-05-14 21:15] VITALS: BP 131/79; PULSE 93; RESP 17; O2SAT 97
[2019-05-14 22:03] VITALS: BP 136/76; PULSE 91; RESP 12; O2SAT 100
[2019-05-14 22:09] VITALS: BP 136/76; PULSE 92; RESP 25; O2SAT 97
[2019-05-14 22:36] LABS: Reflexed Lactate in 2 Hours Y
== END 2019-05-14 22:00 | disposition home or self-care (01) ==
PROVIDERS: Emergency Medicine; Emergency Provider Emergency Medicine; PCP Internal Medicine
DX: E86.0 Dehydration (principal); R00.2 Palpitations
CPT/HCPCS: 36415; 36591; 80053; 81003; 82009; 82550; 82805; 82962; 83605; 84145; 84484; 85025; 87040; 93005; 93010; 96360; 99283; 99285

== ENCOUNTER → 2021-02-22 15:56 | Outpatient (CLI) | payer MEDICARE, OTHER, MEDICAID, SELFPAY ==
[2021-02-22] MEDS: COVID-19 VACC #1, MRNA(MOD) 100 MCG/0.5 ML VIAL IM (16:10)
== END ==
PROVIDERS: PCP Internal Medicine; Visit Provider Internal Medicine
DX: Z23 Encounter for immunization (principal)
CPT/HCPCS: 0011A; 91301

== ENCOUNTER → 2021-03-22 15:32 | Outpatient (CLI) | payer MEDICARE, OTHER, MEDICAID, SELFPAY ==
[2021-03-22] MEDS: COVID-19 VACC #2, MRNA(MOD) 100 MCG/0.5 ML VIAL IM (15:39)
== END ==
PROVIDERS: PCP Internal Medicine; Visit Provider Internal Medicine
DX: Z23 Encounter for immunization (principal)
CPT/HCPCS: 0012A; 91301

== ENCOUNTER 2022-09-21 16:43 | Emergency (ER) | payer MEDICARE, MEDICAID, SELFPAY ==
[2022-09-21 17:02] VITALS: BP 179/103; PULSE 90; RESP 24; TEMP 36.6; O2SAT 99; BMI 44.1
--- NOTE | 2022-09-21 18:41 | ED.EYEPROB ---
HPI - Eye Problem <Soledad Aceves [facility] - Last Filed: 09/21/22 18:55> General Chief complaint: Eye Problems Stated complaint: States retinopathy visual disturbances Time Seen by Provider: 09/21/22 18:16 Source: patient Mode of arrival: Ambulatory History of Present Illness HPI Narrative: This is a 57-year-old female with history of insulin-dependent diabetes which she states is type 1, bipolar 2, PTSD, chronic pain syndrome, obesity, has history of multiple allergies and states that she has severe low back pain, has had a upper respiratory infection for the last 6 days with sore throat, congestion, cough. She presents to the emergency department today for what she describes as white shooting vision changes in the periphery of her left eye that have been occurring on and off over the last 2 years but increasing in frequency over the last 1 month. She states that she had a dark spot in her left eye that occurred when she walked out into a bright room, denies any eye pain, states that the spot was present for a little while and then went away. She denies any eye pain, eye pain with eye movement, has not had an eye exam in 3 years, denies any vision loss. States that her right eye was scratched by her cat 3 weeks ago but that her left eye has been fine. She denies any left eye irritation, has not taken any COVID test, denies any acute changes, trauma, she denies any persistent missing portion of the monocular visual field. Related Data Home Medications Medication Instructions Recorded Confirmed Lancet: Device ##0 05/02/17 08/06/22 glucagon 1 mg/mL solution for 1 mg IM PRN PRN ##0 11/12/17 08/06/22 injection (GlucaGen Diagnostic Kit) rosuvastatin 20 mg tablet 20 mg PO DAILY ##0 11/12/17 08/06/22 fluconazole 150 mg tablet 150 mg PO .ONCE PRN YEAST INFECTION 05/14/19 08/06/22 (Diflucan) naloxone 4 mg/actuation nasal spray 1 spray intranasal PRN PRN Opiate 05/14/19 08/06/22 Reversal omeprazole 20 mg tablet,delayed 20 mg PO DAILY 05/14/19 08/06/22 release tizanidine 4 mg tablet 4 mg PO Q8H PRN Spasms 05/14/19 08/06/22 ibuprofen 200 mg tablet 600 mg PO Q8H PRN 01/23/22 08/06/22 insulin aspart U-100 100 unit/mL See Rx Instructions .Route SEE 01/23/22 08/06/22 (3 mL) subcutaneous pen (Novolog INSTRUCTIONS Flexpen U-100 Insulin aspart) insulin degludec 200 unit/mL (3 See Rx Instructions .Route .COMPLEX 01/23/22 08/06/22 mL) subcutaneous pen oxycodone 15 mg tablet 15 mg PO Q8H PRN PAIN 01/23/22 08/06/22 Previous Rx's Medication Instructions Recorded valacyclovir 500 mg tablet 500 mg PO BID ##60 05/19/12 Glucose: Home Monitor ea ##1 04/26/17 Glucose: Test Strips str QID ##180 05/01/17 citalopram 40 mg tablet 40 mg PO BEDTIME #30 tabs 08/06/22 diazepam 10 mg tablet 10 mg PO .COMPLEX #120 tabs 08/06/22 diazepam 10 mg tablet 10 mg PO .COMPLEX #30 tabs 08/06/22 quetiapine 200 mg tablet 200 mg PO HS #30 tabs 08/06/22 dextroamphetamine-amphetamine 5 mg 5 mg PO DAILY PRN Inattention #30 08/20/22 tablet (Adderall) tabs dextroamphetamine-amphetamine ER 20 mg PO QAM #30 caps 08/20/22 20 mg 24hr capsule,extend release (Adderall XR) Allergies Allergy/AdvReac Type Severity Reaction Status Date / Time amoxicillin [AMOXICILLIN] Allergy Severe RASH Verified 04/24/22 15:24 Penicillins [PENICILLINS] Allergy Severe RASH Verified 04/24/22 15:24 Sulfa (Sulfonamide Allergy Severe RASH Verified 04/24/22 15:24 Antibiotics) [SULFA (SULFONAMIDE ANTIBIOTICS)] haloperidol [HALOPERIDOL] AdvReac Intermediate TARDIVE Verified 04/24/22 15:24 DYSKINESIA prochlorperazine AdvReac Intermediate TARDIVE Verified 04/24/22 15:24 [PROCHLORPERAZINE] DYSKINESIA Review of Systems <HERBERT Mathur - Last Filed: 09/21/22 18:55> Review of Systems Narrative: Review of systems is negative for acute abnormalities unless otherwise noted in HPI Patient History <HERBERT Mathur - Last Filed: 09/21/22 18:55> Medical History Attention deficit hyperactivity disorder (ADHD), combined type Bilateral low back pain with sciatica (12/08/15) Bipolar 2 disorder Chronic pain syndrome (12/08/15) Diabetes Diabetic ketoacidosis with coma associated with type 2 diabetes mellitus (12/08/15) Diabetic neuropathy Encounter for long-term methadone use for opiate dependence (12/08/15) Former smoker (03/20/16) Fracture of right proximal fibula Fractured coccyx History of avascular necrosis of capital femoral epiphysis (12/08/15) Hyperalgesia (12/08/15) Obesity Obesity with body mass index (BMI) of 30.0 to 39.9 (01/17/16) Opiate dependence Other closed fracture of proximal end of right fibula with routine healing (06/19/16) Post traumatic stress disorder Thoracic myofascial strain Social History Smoking Status: Former smoker Smoking Status: Former smoker alcohol intake frequency: holidays/special occasions only Substance Use Type: does not use Exam <HERBERT Mathur - Last Filed: 09/21/22 18:55> Narrative Exam Narrative: Reviewed vitals signs and nursing notes. General: cooperative, comfortable, in no acute distress, well groomed HEENT: symmetrical facial expressions, moist mucous membranes, mild conjunctival injection bilaterally, without tearing, light sensitivity, proptosis, ptosis or temporal artery tenderness, visual acuity Visual acuity performed by the RN shows uncorrected right eye 20 40, uncorrected left eye 20 70, bilateral uncorrected is 20 50, pupils are equal and reactive to light and accommodation bilaterally, EOMI without any acute vision loss, normal fundus appearance on my funduscopic exam Patient refused COVID testing with RSV and influenza. Initial Vital Signs Initial Vital Signs: Vital Signs Temperature 97.8 F 09/21/22 17:02 Pulse Rate 90 09/21/22 17:02 Respiratory Rate 24 09/21/22 17:02 Blood Pressure 179/103 H 09/21/22 17:02 Pulse Oximetry 99 09/21/22 17:02 Oxygen Delivery Method 09/21/22 17:02 <Abida Sanchez DO - Last Filed: 09/22/22 05:14> Initial Vital Signs Initial Vital Signs: Vital Signs Temperature 97.8 F 09/21/22 17:02 Pulse Rate 90 09/21/22 17:02 Respiratory Rate 24 09/21/22 17:02 Blood Pressure 179/103 H 09/21/22 17:02 Pulse Oximetry 99 09/21/22 17:02 Oxygen Delivery Method 09/21/22 17:02 Course <HERBERT Mathur - Last Filed: 09/21/22 18:55> Orders Ordered: ED Orders 09/21/22 18:38 Covid-19 + FLU A/B + RSV - PCR Stat Vital Signs Vital signs: Vital Signs - 8 hr 09/21/22 17:02 Temperature 97.8 F Pulse Rate 90 Respiratory Rate 24 Blood Pressure 179/103 H Pulse Oximetry 99 Oxygen Delivery Method Room Air <Abida Sanchez DO - Last Filed: 09/22/22 05:14> Orders Ordered: ED Orders 09/21/22 18:38 Covid-19 + FLU A/B + RSV - PCR Stat Vital Signs Vital signs: Vital Signs - 8 hr 09/21/22 17:02 Temperature 97.8 F Pulse Rate 90 Respiratory Rate 24 Blood Pressure 179/103 H Pulse Oximetry 99 Oxygen Delivery Method Room Air MDM - Eye Problem <HERBERT Mathur - Last Filed: 09/21/22 18:55> MDM Narrative Medical decision making narrative: This is a 57-year-old female presents to the emergency department with upper respiratory infection symptoms since September 17, was hypertensive today but states that she has been under stress, without sleep, has a history of IDDM, bipolar 2, PTSD, and presents to the emergency department with white flashes of light that she has seen in the periphery of her left eye occasionally. She states that 2 days ago she had a black spot in her left vision that occurred when she walked outside into bright light in states it took about a half an hour to resolve. She denies any eye pain, eye pain with movement, she is concerned about diabetic retinopathy and has not had a vision exam in 3 years. She received a message from her PCP via online portal 2 weeks ago which told her to go to the emergency department and have her vision checked and states that she just got this email today so she came in. Unfortunately is 19:00 on a Saturday night and there is no Ophthalmology anywhere in her by that is open. She does not have any acute vision loss, her visual acuity is stated under exam, patient wishes to leave and follow-up with Dr. Fernandez her feltmaker and weigher during the week day. She refused her COVID and influenza testing after she told me about her cough cold and congestion. States that her COVID test was negative at home. Patient is here with her son who has similar symptoms. Discussed using Zyrtec at night, stay hydrated, using Tylenol as needed for her symptoms and to follow-up with ophthalmology. Patient is appropriate and amenable to discharge home. Vital signs are stable on repeat examination is unremarkable. Patient has been informed of results. Patient has been given strict return to ER precautions for any new or worsening symptoms. Patient understands to follow up closely with outpatient providers as instructed. Patient understands plan and agrees to discharge home. All questions and concerns answered at this time. Discharge Plan Departure Patient Disposition: Home Clinical Impression: Vision changes, History of diabetes mellitus Upper respiratory infection Qualifiers: URI type: unspecified viral URI Qualified Code(s): J06.9 - Acute upper respiratory infection, unspecified Instructions: Common Cold, DI for Viral Upper Respiratory Infection -- Adult, DI for Eye Flash Burn, DI for Eye Floaters, DI for Visual Field Disturbances, Diabetic Retinopathy Activity Restrictions/Additional Instructions: *You have been diagnosed with vision changes, this could be a progression of diabetic retinopathy which you do not have a diagnosis of yet, I have attached information about this to be helpful. Please follow-up with Dr. Fernandez, please call him Saturday morning and asked to come in for the soonest available appointment for evaluation of your vision changes. Please give him a good history, your blood pressure appears safe today, when you checked in it was much higher than it is currently. Please stay hydrated, take your other medications as prescribed, take Zyrtec/cetirizine at night as needed for postnasal drip or congestion. Ibuprofen and/or Tylenol for your other symptoms. Please return to the emergency department for acute vision changes or loss of your vision or with eye pain. Thank you for your patients, follow-up with Dr. Fernandez, I hope you feel better soon *What to do: *Please continue to take your regular medications as directed. [ ] New medication prescriptions sent to your pharmacy: [ ] [ ] New medication written as a paper prescription [x ] No new medications given *Please follow up with your primary care provider in 2-3 days, call for an appointment. Let them know you were seen in the Emergency Department and that we asked that you be seen for follow-up. We will electronically transmit a record of today's note if your PCP is in our system *If you do not have a primary care provider please contact [phone] to establish care with one of the [facility] primary care providers. *Return to Emergency Department if you should have any new, worsening, or concerning symptoms, such as [fever greater than 101F, chills, worsening pain, persistent vomiting or other bothersome symptoms]. Prescriptions: No Action insulin degludec 200 unit/mL (3 mL) insulin pen See Rx Instructions .ROUTE .COMPLEX Rx Instructions: inject 46 units SQ BID Novolog Flexpen U-100 Insulin 100 unit/mL (3 mL) insulin pen See Rx Instructions .ROUTE SEE INSTRUCTIONS Rx Instructions: inject 20-50 units SQ QID before meals and HS ibuprofen 200 mg tablet 600 mg PO Q8H PRN citalopram 40 mg tablet 40 mg PO BEDTIME Qty: 30 5RF quetiapine 200 mg tablet 200 mg PO HS Qty: 30 5RF diazepam 10 mg tablet 10 mg PO .COMPLEX MDD 50 mg Qty: 120 4RF Rx Instructions: 30mg PO scheduled at bedtime; ok to take additional 10mg up to twice daily as needed for severe anxiety diazepam 10 mg tablet 10 mg PO .COMPLEX MDD 50mg Qty: 30 1RF Rx Instructions: 30mg PO scheduled at bedtime; ok to take additional 10mg up to twice daily as needed for severe anxiety valacyclovir 500 MG tablet 500 mg PO BID Qty: 60 11RF Glucose: Home Monitor Qty: 1 0RF Glucose: Test Strips QID Qty: 180 5RF Lancet: Device Qty: 0 glucagon [GlucaGen Diagnostic Kit] 1 MG/1 ML recon soln 1 mg IM PRN PRNQty: 0 rosuvastatin 20 MG tablet 20 mg PO DAILY Qty: 0 dextroamphetamine-amphetamine [Adderall XR] 20 mg capsule,extended release 24hr 20 mg PO QAM Qty: 30 0RF Hold Instructions: Per provider, unable to rx at this time, see [facility] dextroamphetamine-amphetamine [Adderall] 5 mg tablet 5 mg PO DAILY PRN (Reason: Inattention) Qty: 30 0RF Hold Instructions: Per provider, unable to rx at this time, see [facility] Rx Instructions: OK to increase to 10mg if needed for effectiveness fluconazole [Diflucan] 150 MG tablet 150 mg PO .ONCE PRN (Reason: YEAST INFECTION) tizanidine 4 mg tablet 4 mg PO Q8H PRN (Reason: Spasms) Label Comments: take 1 tablet by mouth every 8 hours if needed MAX 3 TABLETS IN 24 HOURS as directed Narcan 4 mg/actuation spray,non-aerosol 1 spray intranasal PRN PRN (Reason: Opiate Reversal) Label Comments: instill 1 spray in 1 NOSTRIL if needed for opioid overdose may re...(REFER TO PRESCRIPTION NOTES). omeprazole 20 mg tablet,delayed release (DR/EC) 20 mg PO DAILY oxycodone 15 mg tablet 15 mg PO Q8H PRN (Reason: PAIN) Referrals: Julian Fernandez MD [Physician] - Josr Stanton MD [Primary Care Provider] - Visit Report Forms: Patient Portal/API <Abida Sanchez DO - Last Filed: 09/22/22 05:14> Cosign ED Attending Sonyature Attestation: I was immediately available in the department for consultation. Documentation has been reviewed. Case was discussed
--- NOTE | 2022-09-21 18:49 | PC.NURSE ---
Pt declines covid/flu/rsv panel. States I just want to go home and rest.
== END 2022-09-21 19:23 | disposition home or self-care (01) ==
PROVIDERS: Emergency Provider Nurse Practitioner Critical Care Medicine; PCP Internal Medicine
DX: J06.9 Acute upper respiratory infection, unspecified (principal); H53.8 Other visual disturbances
CPT/HCPCS: 99281

== ENCOUNTER → 2023-05-02 15:30 | Outpatient (CLI) | payer MEDICARE, MEDICAID, SELFPAY ==
--- NOTE | 2023-05-02 15:32 | DI.US.S_ITS ---
PROCEDURE: US PELVIC COMPLETE INDICATIONS: postmenopausal bleeding TECHNIQUE: Real-time scanning was performed of the pelvic organs, with image documentation. Additional endovaginal scanning was necessary due to incomplete visualization of the adnexal and endometrial structures by transabdominal scanning. COMPARISON: None. FINDINGS: Uterus: Uterus is anteverted and normal in size at 6.9 x 2.9 x 3.1 cm. The myometrium is heterogenous. The endometrium measures 8 mm combined thickness. Ovaries: Not visualized Other: No pathologic free pelvic fluid. IMPRESSION: Unremarkable uterus and endometrium noted. Nonvisualized ovaries. No free fluid in the pelvis. Approved by: Tej Ellsworth M.D. on 05/02/2023 at 18:15
== END ==
PROVIDERS: PCP Internal Medicine; Referring Provider Obstetrics & Gynecology; Visit Provider Obstetrics & Gynecology
DX: N95.0 Postmenopausal bleeding (principal)
CPT/HCPCS: 76856